=== PATIENT | female | born 1995 | race African-American/Black ===

== ENCOUNTER 2017-04-16 14:37 | Emergency (ER) | payer SELFPAY ==
[2017-04-16 14:41] VITALS: BP 131/70
== END 2017-04-16 16:59 | disposition left against medical advice (07) ==
LOC: ED 14:37
DX: O26.891 Other specified pregnancy related conditions, first trimester (principal); R07.9 Chest pain, unspecified; Z53.21 Procedure and treatment not carried out due to patient leaving prior to being seen by health care provider